=== PATIENT | male | born 1990 | race Caucasian/White ===

== ENCOUNTER 2019-09-07 02:55 | Emergency (ER) | payer MEDICAID, OTHER ==
[~2019-09-07] VITALS: Ht 177.8 cm; Wt 71.9 kg
[2019-09-07 03:03] VITALS: BP 123/88
[2019-09-07] MEDS ORDERED: PENI500T2 PO (03:34)
[2019-09-07] MEDS ORDERED: penicillin V potassium 500mg tablet PO ONE (03:35)
[2019-09-07] MEDS ORDERED: ibuprofen tablet 400 MG TABLET PO ONE (03:35)
== END 2019-09-07 03:51 | disposition home or self-care (01) ==
LOC: ER 02:55
DX: K08.89 Other specified disorders of teeth and supporting structures (principal); F17.200 Nicotine dependence, unspecified, uncomplicated; F12.90 Cannabis use, unspecified, uncomplicated; Z79.899 Other long term (current) drug therapy
CPT/HCPCS: 99283

== ENCOUNTER 2024-08-29 14:31 | Emergency (ER) | payer MEDICAID ==
[~2024-08-29] VITALS: Ht 180.3 cm; Wt 90.9 kg
[2024-08-29 14:32] VITALS: BP 153/96; PULSE 63; TEMP 98.4; O2SAT 99
--- NOTE | 2024-08-29 14:36 | Physician Documentation ---
HPI ~ General Chief Complaint: Tooth Problem Stated Complaint: ABSCESS TOOTH Time Seen by MD: 14:38 Primary Medical Doctor: NONE History of Present Illness HPI Comment 43-year-old male presents to the ED with a complaint of six days of dental pain. States he has a cracked and carried tooth in his back lower left molar region.. denies any fevers nausea vomiting Medication Reconciliation Allergies: Coded Allergies: No Known Allergies (Unverified , 06/17/09) Scheduled Amoxicillin Trihydrate* (Amoxicillin*), 1 CAP PO Q12H Ibuprofen* (Motrin*), 800 MG PO Q12H Past Medical History Past Medical History: No Pertinent History Past Surgical History: no surgical history Alcohol Use: None Drug Use: marijuana Lives In: Home Review of Systems All Other Systems at this time: Reviewed and Negative ROS As stated above in the HPI, otherwise all systems are reviewed and negative. Physical Exam Vital Signs: Temperature: 98.4, Heart Rate: 63, Respiratory Rate: 16, BP: 153/96, Pulse Oximetry: 99, Weight: 90.910 Oxygen Flow Rate: 0 Physical Exam General: Alert, no apparent distress. oral cabvity: Wheeze throughout oral cavity erythema and swelling in the surrounding left lower molars Respiratory: Lungs clear, no respiratory distress. Cardiovascular: Regular rate and rhythm, no murmurs. Neurologic: Oriented x4. Psychiatric: Normal mood and affect. Skin: Normal color, warm and dry. No edema, no ecchymosis. Progress Results/Orders Results/Orders Completed Orders - PETER NUNEZ NP Amoxicillin Capsule (Trimox Capsule) (08/29/24 14:50) Ketorolac Trometh 30mg/Ml Vial (Toradol (08/29/24 15:15) Medications Received in ER Medications (Trade) Dose Ordered Sig/Linda Route PRN Reason Start Time Stop Time Status Last Admin Dose Admin (Trimox capsule) 500 mg ONCE ONCE PO 08/29/24 14:50 08/29/24 14:51 DC 08/29/24 15:03 500 MG (Toradol inj. 30mg/ml) 30 mg ONCE ONCE IM 08/29/24 15:15 08/29/24 15:16 DC 08/29/24 15:23 30 MG Vital Signs 08/29/24 08/29/24 14:32 15:23 Temp 98.4 Pulse 63 Resp 16 15 B/P (MAP) 153/96 Pulse Ox 99 O2 Flow Rate 0 Medical Decision Making Findings Treating patient for suspected tooth abscess. Present toxic in his hemodynamically stable meets criteria for outpatient therapy Differential Dx:Considerations: Include: Alveolar fracture, Alveolar osteitis, ANUG, Facial Cellulitis, Periapical abscess, Peridontal abscess, Post-extraction bleeding, Pulpitis, Tooth avulsion, Tooth eruption, Tooth Fracture, Trigeminal neuralgia, Tooth subluxation, Other Departure Disposition: HOME / SELF CARE / HOMELESS Impression: Primary Impression: Dental caries Additional Impression: Dental abscess Condition: Stable Discharge Instructions: Dental Caries, Adult, Dental Abscess Referrals: NO PRIMARY CARE PROVIDER (PCP) Prescriptions Ibuprofen* (Motrin*) 400 Mg Tablet 800 MG PO Q12H, #20 TAB Use as needed for pain Prov: PETER NUNEZ NP 08/29/24 Amoxicillin Trihydrate* (Amoxicillin*) 500 Mg Capsule 1 CAP PO Q12H for 10 Days, #20 CAP Prov: PETER NUNEZ NP 08/29/24 Signature Scribe Signature: Attestation: The note accurately reflects work and decisions made by me.Peter Gonzales NP 08/29/24 19:00 PETER NUNEZ NP August 29, 2024 14:36
[2024-08-29] MEDS ORDERED: AMOX500C2 PO (14:48)
[2024-08-29] MEDS ORDERED: IBUP-1984 PO (14:49)
[2024-08-29] MEDS: amoxicillin 250mg capsule PO ONE (15:03)
[2024-08-29 15:23] VITALS: RESP 15
[2024-08-29] MEDS: ketorolac trometh 30MG/ML vial 30 MG/ML VIAL IM ONE (15:23)
== END 2024-08-29 15:28 | disposition home or self-care (01) ==
LOC: ER 14:32
DX: K04.7 Periapical abscess without sinus (principal); K02.9 Dental caries, unspecified; Z79.899 Other long term (current) drug therapy
CPT/HCPCS: 96372; 99283; J1885